=== PATIENT | male | born 1940 | race Caucasian/White ===

== ENCOUNTER 2018-03-26 07:50 | Inpatient (IN) | payer MEDICARE ==
--- NOTE | 2018-03-26 05:56 | History and Physical Report ---
DATE: 03/26/2018. CHIEF COMPLAINT AND HISTORY OF CHIEF COMPLAINT: This patient presents with a history of an intractable postlaminectomy radiculopathy. Due to the failure of all therapies, he presents today for an implanted spinal catheter infusion trial with hydromorphone. PAST MEDICAL HISTORY: Hypertension, sleep apnea. PAST SURGICAL HISTORY: Lumbar spinal surgery times three. MEDICATIONS ON ADMISSION: To be provided. ALLERGIES: Multiple blood pressure medications. SOCIAL HISTORY: Social alcohol, caffeine. FAMILY HISTORY: Diabetes, coronary artery disease, hypertension, cancer. REVIEW OF SYSTEMS: The patient seems appropriate and in no acute distress. The remainder of the systems review shows glasses, blood pressure problems, degenerative arthritis, depression, difficulty sleeping. PHYSICAL EXAMINATION: General: Height and weight unavailable. Vital Signs: Not available. HEENT: Within normal limits. Lungs: Clear. Heart: Regular rate and rhythm. Abdomen: Nontender. Musculoskeletal: Examination of the musculoskeletal system shows diffuse tenderness in the lumbar spine. Range of motion does produce pain moving into the right leg greater than left. There currently are mild motor deficits with some weakness into the right leg. Sensory field abnormality across the anterolateral surface of the right leg. Ambulation: Assistive device utilized. Neurologic: Cranial nerves are intact. IMPRESSION: 1. POSTLUMBAR LAMINECTOMY SYNDROME, ICD-10 CODE M96.1. 2. LUMBAR RADICULOPATHY, ICD-10 CODE M54.16 AND M54.17. PLAN: The patient is here for an implanted spinal catheter infusion trial with hydromorphone to determine if the implantation of a permanent system can be of any value in pain control. The potential risks, side effects, and complications have all been carefully reviewed and discussed. These include spinal cord injury, spinal headache, nerve root injury, and paralysis. Information to and reviewed with the patient from the canine service teacher by way of written as well as CD Rom. Direct contact with a clinical specialist from [employer] to explain everything has already been provided. All questions were answered. We will consider the procedure outpatient; although an overnight stay will be evaluated because of the epidural blood patch. JOB NUMBER: [id number] cc: Larry Amador Jr., D.O. Aislinn Ocampo
[~2018-03-26 07:50] MED LIST: ACETAMINOPHEN 1,000 MG/100 ML BTL IV ONE; CEFAZOLIN 2 Gram 2 GM/50 ML BAG IVPB ONE; FAMOTIDINE 20MG TABLET PO ONE; HYDROMORPHONE PF 2MG/ML AMP 0.008 MG in 0.9 % SODIUM CHLORIDE 10ML VIA 0.996 ML IV ONE; HYDROMORPHONE PF 2MG/ML AMP 8 MG in 0.9 % SODIUM CHLORIDE 500ML 496 ML IV ONE; MECLIZINE 25 MG TABLET PO ONE; METOCLOPRAMIDE 10 MG TABLET PO ONE
[2018-03-26] MEDS ORDERED: PROPOFOL 10 MG/ML VIAL IV ONE (07:51)
[2018-03-26] MEDS ORDERED: MIDAZOLAM HCL 2MG/2ML VIAL IV ONE (07:51)
[2018-03-26] MEDS ORDERED: FENTANYL PF 100MCG/2ML VIAL IV ONE (07:51)
[2018-03-26] MEDS ORDERED: 0.9 % SODIUM CHLORIDE 10 ML VIAL IVP ONE (07:51)
[2018-03-26] MEDS ORDERED: 0.9 % SODIUM CHLORIDE 100ML BAG IV ONE (07:51)
[2018-03-26] MEDS ORDERED: LIDOCAINE 2% MDV (20MG/ML) 20ML VIAL IV ONE (07:51)
[2018-03-26] MEDS ORDERED: *PACU ONLY* KETAMINE HCL 10 MG/ML (20ML) VIAL IV ONE (07:51)
[2018-03-26] MEDS ORDERED: CEFAZOLIN 1G VIAL IM ONE (07:51)
[2018-03-26 08:16] LABS: BLEEDING TIME 3.5 MINUTES (1.5-7.0)
[2018-03-26 08:29] LABS: PARTIAL THROMBOPLASTIN TIME 27.1 SECONDS (24.5-39.1); PROTHROMBIN TIME (PATIENT) 10.6 SECONDS (9.5-12.1)
[2018-03-26] MEDS ORDERED: TEMAZEPAM 15 MG CAPSULE PO PRN ×2 (10:42)
[2018-03-26] MEDS ORDERED: DIPHENHYDRAMINE HCL 50 MG/ML VIAL IVP PRN ×2 (10:42)
[2018-03-26] MEDS ORDERED: METOCLOPRAMIDE HCL 10 MG/2 ML VIAL IVP PRN (10:42)
[2018-03-26] MEDS ORDERED: METOCLOPRAMIDE 10 MG TABLET PO PRN (10:42)
[2018-03-26] MEDS ORDERED: ACETAMINOPHEN 325 MG TAB PO PRN ×2 (10:42)
[2018-03-26] MEDS ORDERED: HYDROMORPHONE HCL 2 MG/ML VIAL IM PRN ×2 (10:42)
[2018-03-26] MEDS ORDERED: AL HYDROX/MAG HYDROX 30ML UD PO PRN (10:42)
[2018-03-26] MEDS ORDERED: NALOXONE 0.4 MG/1 ML VIAL IVP PRN (10:42)
[2018-03-26] MEDS ORDERED: DIPHENHYDRAMINE HCL 25 MG CAPSULE PO PRN ×2 (10:42)
[2018-03-26] MEDS ORDERED: HYDROCODONE/APAP 7.5/325MG TABLET PO PRN (10:42)
[2018-03-26] MEDS: RINGERS SOLUTION,LACTATED 1,000 ML IV SCH ×2 (17:00→19:57)
[2018-03-26] MEDS: OXYCODONE/APAP 10MG-325MG TABLET PO PRN ×2 (17:36→21:27)
[2018-03-26] MEDS: PREGABALIN (LYRICA) 100MG CAPSULE PO SCH ×2 (17:37→21:28)
[2018-03-26] MEDS: AMLODIPINE BESYLATE 5MG TAB PO SCH ×2 (17:38→21:28)
[2018-03-26] MEDS: CEFAZOLIN 1 Gram 1 GM/50 ML BAG IVPB SCH ×2 (17:40→18:44)
[2018-03-26] MEDS: SENNOSIDES/DOCUSATE SODIUM UD CAPSULE PO PRN (17:42)
--- NOTE | 2018-03-26 21:25 | Operative Note - Fer[place] ---
DATE OF SURGERY: 03/26/18 PREOPERATIVE DIAGNOSIS: POST LAMINECTOMY SYNDROME, ICD-10 CODE = M96.1 WITH LUMBAR RADICULOPATHY, ICD- 10 CODE = M54.16 AND M54.17. SURGERY: 1. FLUOROSCOPIC-GUIDED ACCESS SPINAL SPACE AT L2-3, PLACEMENT OF THIN-WALLED SPINAL CATHETER T11. 2. DIAGNOSTIC MYELOGRAPHY WITH RADIOLOGIC SUPERVISION AND INTERPRETATION. 3. BOLUS OF HYDROMORPHONE 0.002 MG SPINAL SPACE. 4. INCISION, SUBCUTANEOUS DISSECTION, AND ANCHORING OF SPINAL CATHETER TO SUPRASPINOUS FASCIA USING ANCHORING DEVICE AND NONABSORBABLE SUTURE. 5. INCISION, SUBCUTANEOUS DISSECTION, AND CREATION OF SUBCUTANEOUS POUCH AT RIGHT POSTERIOR GLUTEAL MARGIN FOR PLACEMENT OF INTERFACE TO CATHETER. 6. TUNNELING SPINAL CATHETER INTO POSTERIOR POUCH, INTERFACE SPINAL CATHETER WITH SECOND CATHETER COMPONENT BY WAY OF CONNECTOR, TUNNELING SECOND CATHETER COMPONENT 6 CM SUPERIOR, EXITING SKIN. INTERFACE EXTERNAL CATHETER TO EXTERNAL INFUSION PUMP SET TO DELIVER HYDROMORPHONE AT 0.08 MG A DAY. 7. CLOSURE OF POSTERIOR POUCH WITH RUNNING NYLON. CLOSURE OF MIDLINE INCISION WITH STRATAFIX 2-0 FOR FASCIA AND 3-0 FOR SUBCUTICULAR. DERMABOND CLOSURE. 8. NO EPIDURAL BLOOD PATCH BECAUSE OF MULTIPLE LEVELS OF SPINAL FUSION. SURGEON: DARION ROWE D.O. ANESTHESIA: LOCAL SEDATION. ANESTHESIA PROVIDER: ANNY RANGEL CRNA INDICATIONS: This patient presents with a history of an intractable post laminectomy. Diagnostics show four levels of hardware, screws and rods with extensive arthritic change. Due to the failure of therapy, he is here for a spinal infusion trial with implanted catheter to determine if the implantation of a permanent system can be of any value in pain control. SURGERY: Intravenous line, vital sign monitoring, IV sedation, prepped and draped sterile technique. Patient positioned prone. Sterile prep, sterile technique. The spinal interspace at L2-3 was marked, infiltrated. Using fluoroscopic AP and lateral imaging, a #20 gauge spinal was inserted into the spinal space with CSF flow. A thin-walled a thin-walled spinal catheter was advanced and positioned at T11. Diagnostic myelography was performed. The flow characteristics were appropriate for spinal placement with smooth and linear flow characteristics. Catheter identified midline. There was no pain response on the part of the patient. With the confirmation, catheter positioned and bolus of Hydromorphone 0.002 mg was given. The skin above and below the needle infiltrated, incision made and subcutaneous dissection was conducted to the supraspinous fascia. The needle was removed and then the catheter was anchored to the supraspinous fascia with an anchoring device and nonabsorbable suture. CSF was still noted through the catheter. The catheter was clamped to stop CSF leak. At the right posterior gluteal margin, a site ultimately for the pump, skin infiltrated, incision made and subcutaneous dissection was conducted to form a small subcutaneous pouch. A tunneling tool was then used to carry the spinal catheter into this pouch and then at this posterior pouch, the catheter was interfaced with second catheter component by way of a connector. The secondary catheter component was tunneled 6 cm superior from this site exiting the skin. The external catheter was then interfaced to an external pump, which was set to deliver Hydromorphone at 0.08 mg a day. No blood patch could be performed because of the extent of hardware fusion in his lumbar spine. The posterior pouch was closed with a running nylon suture. The midline incision was closed with a STRATAFIX suture, 2-0 for fascia and 3-0 for skin. Dermabond closure over the midline incision. Dressings were placed securing the catheter and all connections under sterile dressing including 4x4s and Medipore tape. The patient was transported to the Recovery Room stable, flat, pillow under head and knees. The patient tolerated everything without any difficulty. All upper and lower extremity functionality intact. There was no significant unusual pain pattern. He will be monitored overnight in the house and then discharged in the morning. He will stay flat for four hours and then slowly elevated for one. DISCHARGE INSTRUCTIONS: 1. The sites are to remain clean and dry. No showering or bathing in any way that would disrupt dressings. If it happens, contact the clinic. 2. Standard medications resumed, including Levaquin, the antibiotic, 500 mg once a day for 14 days. 3. The trial will run 12 to 14 days. During this period of time, we will evaluate pain control, functionality, quality of life, and medication reduction. At the end of the trial period, we will either implant the device or remove the catheter. During the trial period, three possible increases will be set up and used until we achieve the appropriate degree of pain control. All other instructions provided, numbers to contact if problems given. He will be discharged in the morning. cc: Dr. Larry MONTGOMERY NUMBER: [id number] MTDD
[2018-03-26] MEDS: LOSARTAN POTASSIUM 25 MG TABLET PO SCH (21:27)
[2018-03-27] MEDS: RINGERS SOLUTION,LACTATED 1,000 ML IV SCH ×3 (00:08→14:51)
[2018-03-27] MEDS: CEFAZOLIN 1 Gram 1 GM/50 ML BAG IVPB SCH ×4 (00:38→09:35)
[2018-03-27] MEDS: OXYCODONE/APAP 10MG-325MG TABLET PO PRN ×3 (01:29→14:58)
[2018-03-27] MEDS: SENNOSIDES/DOCUSATE SODIUM UD CAPSULE PO PRN ×2 (08:40→20:33)
[2018-03-27] MEDS ORDERED: RINGERS SOLUTION,LACTATED 1,000 ML IV PRN (10:00)
[2018-03-27 10:57] LABS: URINE APPEARANCE SL CLOUDY; URINE BILIRUBIN NEGATIVE (NEGATIVE); URINE BLOOD LARGE (NEGATIVE); URINE COLOR GREEN; URINE GLUCOSE (UA) NEGATIVE (NEGATIVE); URINE KETONE NEGATIVE (NEGATIVE); URINE LEUKOCYTE ESTERASE NEGATIVE (NEGATIVE); URINE NITRITE NEGATIVE (NEGATIVE); URINE UROBILINOGEN 0.2 E.U./dL (0.20 - 1.00)
[2018-03-27 11:19] LABS: URINE EPITHELIAL CELLS 0 - 2 (FEW); URINE WBC 0 - 2 (0-2/hpf)
[2018-03-27] MEDS: PREGABALIN (LYRICA) 100MG CAPSULE PO SCH ×2 (12:06→21:54)
[2018-03-27 12:34] LABS: HEMATOCRIT 45.7 % (42.0-52.0); HEMOGLOBIN 15.2 gm/dl (14.0-18.0); MEAN CELL VOLUME 92.5 fl (81-97); MEAN CORPUSCULAR HEMOGLOBIN 30.8 pg (27-33); MEAN CORPUSCULAR HGB CONC 33.3 g/dl (32-36); MEAN PLATELET VOLUME 11.3 fl (7.4-10.4); PLATELET COUNT 182 K/uL (130-400); RED BLOOD COUNT 4.94 M/uL (4.40-5.70); RED CELL DISTRIBUTION WIDTH 14.3 % (11.5-14.5); WHITE BLOOD COUNT W/O DIFF 11.3 K/uL (4.2-12.2)
[2018-03-27 12:56] LABS: ALB/GLOB RATIO 1.6 (1.1-1.8); ALBUMIN 4.2 g/dL (4.0-5.0); BILIRUBIN,TOTAL 0.4 mg/dL (0.2-1.0); CREATININE 2.2 mg/dL (0.7-1.2); TOTAL PROTEIN 6.9 g/dL (6.6-8.7)
--- NOTE | 2018-03-27 14:17 | RADIOLOGY REPORT ---
EXAM: AP PORTABLE THORACOLUMBAR SPINE HISTORY: POST PAIN PUMP TRIAL. TECHNIQUE: A single AP view of the thoracolumbar spine was obtained from approximately the level of the T7 vertebra down to the lower sacrum. Comparison: None. FINDINGS: There is an apparent posterior fusion at the L3 through L5 levels with intrapedicular screws and bridging vertical rods. There is some density overlying the midline of the L5 vertebra probably representing a small amount of contrast media in the spinal canal and correlation with the procedure history is suggested. There is a very dot like opacity overlying the T11-T12 interspace which is presumably the superior extent of the pain pump catheter although again, correlation with the procedure itself suggested. Some surgical clips overlie the level of the lumbar fusion. Linear metallic density 17 mm in length overlying the right iliac wing may be external to the patient. IMPRESSION: THE TIP OF THE PAIN PUMP CATHETER IS PROBABLY AT THE T12 LEVEL DESCRIBED ABOVE. POSTOP CHANGES AT L3 TO L5. JOB NUMBER: [id number] MTDD
[2018-03-27 14:29] LABS: THYROID STIMULATING HORMONE 0.81 uIU/mL (0.270-4.20)
--- NOTE | 2018-03-27 14:36 | RADIOLOGY REPORT ---
EXAM: CHEST, TWO VIEWS HISTORY: HYPOXIA. TECHNIQUE: PA and lateral views of the chest were obtained. Comparison: None. FINDINGS: There is calcification of the aorta. The heart size is at about the upper limits of normal. There is either some coronary artery calcification or a short coronary artery graft/stent extending transversely over the upper left side of the heart on the frontal view. Mild elevation of the left hemidiaphragm laterally. No definite acute infiltrate is seen and no pleural effusion or pneumothorax evident. Somewhat exaggerated kyphosis. Postop changes in the visualized mid lumbar spine. On the frontal view there is a suggestion of an approximately 1.4 cm nodule overlying the left heart border. This also overlies the posterior aspect of the left tenth rib and may just be a combination of overlapping densities. No definite nodule is seen at this level of the chest on the lateral view, however, follow-up chest CT might be useful to exclude a left lower lobe nodule. The lungs do appear somewhat hyperinflated particularly on the lateral view suggesting underlying COPD. IMPRESSION: 1. THERE IS MILD ELEVATION OF THE LEFT HEMIDIAPHRAGM, BUT OVERALL THE LUNGS APPEAR SOMEWHAT HYPERINFLATED SUGGESTING COPD. 2. QUESTIONABLE 1.4 CM NODULE OVERLYING THE POSTERIOR ASPECT OF THE LEFT TENTH RIB. FOLLOW-UP CHEST CT IS SUGGESTED. 3. THE HEART SIZE IS AT ABOUT THE UPPER LIMITS OF NORMAL. 4. POSTOP CHANGES PARTIALLY SEEN IN THE MID LUMBAR SPINE. JOB NUMBER: [id number] [facility]
--- NOTE | 2018-03-27 14:49 | History & Physical ---
History of Present Illness - Date of Service Date of Service for History & Physical: 03/27/18 - History of Present Illness Admitting Diagnosis: Acute heart failure. KIN History of Present Illness: Pt was admitted via Dr. Goddard 03/26/18 for placement of dilaudid pump. This AM nursing noted that the pt was complaining of severe abdominal pain, distention, and rigidity. Bladder scan was done and roughly 1200ml of urine was eradicated from the bladder. His abdominal pain resolved but the urine was very dark. UA was done but only showed blood - likely 2/2 to trauma of catheterization. Retention likely 2/2 to narcotic medication. Per Dr. Goddard the pump was to be shut off until further notice. Urine cx is still pending. Pt also complained of "harder breathing" and swelling in the legs b/l. BNP was done and was found to be 700. He doesn't have h/o heart failure and this requires workup. He was then transitioned to inpt for cardiac workup and KIN likely 2/2 to obstruction with Cr of 2.2. Echo, trops, TSH, and mag were also ordered for further evaluation. CBC and CMP were otherwise normal. Travel Screening - Travel/Exposure Within Last 30 Days Have you traveled within the last 30 days?: No - Travel/Exposure Within Last Year Have you traveled outside the [place] in the last year?: No - Additonal Travel Details Have you been exposed to anyone with a communicable illness?: No - Travel Symptoms Symptom Screening: None Review of Systems Constitutional: Reports: Chills. Denies: Fever, Malaise, Night sweats, Weakness Eyes: Denies: Eye discharge, Eye pain, Photophobia, Vision change ENT: Denies: Congestion, Ear pain Respiratory: Reports: Cough, Dyspnea, Wheezes. Denies: Hemoptysis, Stridor Cardiovascular: Reports: Dyspnea on exertion, Edema. Denies: As per HPI, Arrhythmia, Chest pain, Murmurs, Orthopnea, Palpitations, Paroxysmal nocturnal dyspnea, Syncope Endocrine: Denies: Fatigue Gastrointestinal: Reports: Abdominal pain. Denies: Constipation, Diarrhea, Nausea, Vomiting Genitourinary: Reports: Retention. Denies: Dysuria, Frequency, Incontinence Musculoskeletal: Reports: Back pain Skin: Denies: Change in color Neurological: Denies: Abnormal gait, Confusion, Headache, Numbness, Vertigo, Weakness Psychiatric: Denies: Anxiety, Depression Past Medical History - SOCIAL HISTORY Smoking Status: Former smoker Alcohol Use Comment: answered "yes" would not give anymore info - RESPIRATORY Hx Respiratory Disorders: Yes Hx Sleep Apnea: Yes Hx of CPAP: Yes - CARDIOVASCULAR Hx Cardio Disorders: Yes Hx Abnormal EKG: Yes Hx Cardiac Cath: Yes Hx Chest Pain: (denies) Hx CHF: No Hx Edema: No Hx Heart Attack: Yes Hx Hypertension: Yes (on meds with fair control) Hx Vascular Disease: Yes Hx Coronary Artery Disease: Yes Hx Coronary Stent: Yes (12-14 yrs ago) 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" - NEURO Hx Neuro Disorders: No - GI Hx GI Disorders: No - Hx Genitourinary Disorders: No - ENDOCRINE Hx Endocrine Disorders: No - MUSCULOSKELETAL Hx Musculoskeletal Disorders: Yes Hx Arthritis: Yes Hx Back Injury: Yes - PSYCH Hx Psych Problems: Yes Hx Anxiety: Yes Hx Depression: Yes Comment:: states "wouldnt anybody in as much pain as I am" - HEMATOLOGY/ONCOLOGY Hx Hematology/Oncology Disorders: No Family Medical History Hx Cancer: Mother Hx Diabetes: Father Hx Heart Disease: Father H&P Meds/Allergies - Allergies Allergies: Allergies Allergy/AdvReac Type Severity Reaction Status Date / Time clindamycin AdvReac FLU LIKE Verified 03/26/18 09:01 SYMPTOMS - Active Medications Active Medications: Current Medications Acetaminophen (Tylenol 325mg) 325 mg PO Q4H PRN PRN Reason: PAIN/HEADACHE/TEMP>100.5 Acetaminophen (Tylenol 325mg) 650 mg PO Q4H PRN PRN Reason: PAIN/HEADACHE/TEMP>100.5 Hydrocodone Bitart/Acetaminophen ([place] 7.5mg/325mg) 1 each PO Q3H PRN PRN Reason: PAIN - MILD (1-4) Hydrocodone Bitart/Acetaminophen ([place] 7.5mg/325mg) 2 each PO Q3H PRN PRN Reason: PAIN - MILD (1-4) Al Hydroxide/Mg Hydroxide (Maalox) 30 ml PO Q4H PRN PRN Reason: INDIGESTION/HEARTBURN Amlodipine Besylate (Norvasc) 10 mg PO QHS JORDAN Last Admin: 03/26/18 21:28 Dose: Not Given Diphenhydramine HCl (Benadryl) 25 mg IVP Q4H PRN PRN Reason: ITCHING Diphenhydramine HCl (Benadryl) 50 mg IVP Q4H PRN PRN Reason: ITCHING Diphenhydramine HCl (Benadryl Capsule) 25 mg PO Q4H PRN PRN Reason: ITCHING Diphenhydramine HCl (Benadryl Capsule) 50 mg PO Q4H PRN PRN Reason: ITCHING Hydromorphone HCl (Dilaudid) 1 mg IM Q4H PRN PRN Reason: PAIN - SEVERE (8-10) Hydromorphone HCl (Dilaudid) 2 mg IM Q4H PRN PRN Reason: PAIN - SEVERE (8-10) Hydromorphone HCl 8 mg/ Sodium (Chloride) 500 mls @ 1 mls/hr IV .FOR TRIAL DOSE ONE Stop: 04/16/18 01:59 Last Admin: 03/26/18 15:59 Dose: Not Given Lactated Ringer's () 1,000 mls @ 15 mls/hr IV .Q24H PRN PRN Reason: KVO Last Admin: 03/27/18 11:19 Dose: 15 mls/hr Losartan Potassium (Cozaar) 50 mg PO QHS JORDAN Last Admin: 03/26/18 21:27 Dose: 50 mg Metoclopramide HCl (Reglan) 10 mg PO Q6H PRN PRN Reason: NAUSEA Metoclopramide HCl (Reglan) 10 mg IVP Q6H PRN PRN Reason: NAUSEA Naloxone HCl (Narcan) 0.4 mg IVP .ONCE PRN PRN Reason: DIFFICULTY IN BREATHING Oxycodone/Acetaminophen (Percocet 10-325 Mg Tablet) 1 each PO Q4H PRN PRN Reason: PAIN - MODERATE (5-7) Last Admin: 03/27/18 08:41 Dose: 1 each Oxycodone/Acetaminophen (Percocet 10-325 Mg Tablet) 2 each PO Q4H PRN PRN Reason: PAIN - MODERATE (5-7) Last Admin: 03/27/18 01:29 Dose: 2 each Pregabalin (Lyrica) 200 mg PO BID [facility] Last Admin: 03/27/18 12:06 Dose: 200 mg Senna/Docusate Sodium (Senna Plus) 2 each PO BID PRN PRN Reason: CONSTIPATION Senna/Docusate Sodium (Senna Plus) 4 each PO BID PRN PRN Reason: CONSTIPATION Last Admin: 03/27/18 08:40 Dose: 4 each Temazepam (Restoril) 15 mg PO QHS PRN PRN Reason: SLEEP Temazepam (Restoril) 30 mg PO QHS PRN PRN Reason: SLEEP Physical Exam - Vital Signs Vital Signs: Vital Signs - Last 24 Hrs Temp Pulse Pulse Pulse Resp BP Pulse Ox 03/27/18 14:27 89 18 96 03/27/18 09:00 99.8 F H 81 12 170/83 85 L 03/27/18 08:30 74 78 16 03/27/18 06:15 88 16 93 L 03/27/18 01:00 98.6 F 72 16 160/87 95 03/26/18 21:18 98.0 F 74 18 154/74 94 L 03/26/18 20:03 78 18 03/26/18 17:00 96 - General General Appearance: Alert, Oriented x3, No acute distress Limitations: No limitations - Head Head exam: Atraumatic, Other (somewhat diaphoretic) - Eye Eye exam: Normal appearance - ENT Ear exam: Normal external inspection Nasal Exam: Normal inspection - Neck Neck exam: Normal inspection - Respiratory Respiratory exam: Decreased breath sounds (b/l). negative: Normal lung sounds bilaterally - Cardiovascular Cardiovascular Exam: Regular rate, Normal rhythm - GI/Abdominal GI/Abdominal exam: Soft, Normal bowel sounds. negative: Guarding, Hernia, Mass , Pulsatile mass - exam: Normal inspection - Extremities Extremities exam: Pedal edema (1+ b/l up to knee), Tenderness (when checking for edema b/l) - Psychiatric Psychiatric exam: Normal mood Results - Labs Result Diagrams: 03/27/18 12:22 03/27/18 12:22 Labs Last 24 Hours: Laboratory Results - last 24 hr 03/27/18 03/27/18 03/27/18 10:50 12:22 12:22 WBC 11.3 RBC 4.94 Hgb 15.2 Hct 45.7 MCV 92.5 MCH 30.8 MCHC 33.3 RDW 14.3 Plt Count 182 MPV 11.3 H Neutrophils % 90.0 H Eosinophils % Not Reportable Basophils % Not Reportable Lymphocytes 3.0 L Monocytes 7.0 Sodium 143 Potassium 4.3 Chloride 103 Carbon Dioxide 24.0 Anion Gap 16.0 BUN 29 H Creatinine 2.2 H Estimated GFR 31 Random Glucose 168 H Calcium 9.1 Magnesium Total Bilirubin 0.40 AST 19 ALT 9 Alkaline Phosphatase 65 Troponin T NT-Pro-B Natriuret Pep Total Protein 6.9 Albumin 4.2 Globulin 2.7 Albumin/Globulin Ratio 1.6 TSH Urine Color Green H Urine Appearance Sl cloudy Urine pH 6.0 Ur Specific Staples 1.010 Urine Protein 30 mg/dl H Urine Glucose (UA) Negative Urine Ketones Negative Urine Blood Large H Urine Nitrite Negative Urine Bilirubin Negative Urine Urobilinogen 0.2 Ur Leukocyte Esterase Negative Urine RBC Too numerous to cnt Urine WBC 0 - 2 Ur Epithelial Cells 0 - 2 03/27/18 03/27/18 03/27/18 12:22 12:22 12:22 WBC RBC Hgb Hct MCV MCH MCHC RDW Plt Count MPV Neutrophils % Eosinophils % Basophils % Lymphocytes Monocytes Sodium Potassium Chloride Carbon Dioxide Anion Gap BUN Creatinine Estimated GFR Random Glucose Calcium Magnesium 1.8 Total Bilirubin AST ALT Alkaline Phosphatase Troponin T < 0.010 NT-Pro-B Natriuret Pep 701.00 H Total Protein Albumin Globulin Albumin/Globulin Ratio TSH 0.81 Urine Color Urine Appearance Urine pH Ur Specific Staples Urine Protein Urine Glucose (UA) Urine Ketones Urine Blood Urine Nitrite Urine Bilirubin Urine Urobilinogen Ur Leukocyte Esterase Urine RBC Urine WBC Ur Epithelial Cells VTE H&P Assessment - Risk for VTE Risk for VTE: Yes Risk Level: Moderate Risk Assessment Date: 03/27/18 Risk Assessment Time: 15:00 VTE Orders Placed or Will Be Placed: Yes Plan - Inpatient Certification Inpatient Certification: Admit to inpatient care: Based on my medical assessment, after consideration of patient's risk factors (age, co-morbidities and patient presenting symptoms and acuity), I expect that this patient will remain in the hospital greater than or equal to two midnights and that the services needed warrant inpatient care because: Patient Risk Factors: [] Estimated length of stay: [] The patient may reasonably be expected to be discharged or transferred to a hospital within 96 hours after admission to [facility]. Services needed: [] Post hospital care (if known): [] I certify that my determination is in accordance with my understanding of Medicare requirements for reasonable and necessary inpatient services. - Detailed Diagnosis and Plan (1) Acute heart failure Plan: - BNP 701 today - Chronic HTN. Not very well controlled. Recent increase in fluid 2/2 to surgery and LR protocol. - Called PCP regarding pt's history. Last echo was done in 2013 with EF of 60-65 % with mild diastolic dysfunction. No valvular issues. - Rpt echo pending. - Trops, tsh, EKG normal. - D/C'd LR, saline lock ordered. - Lasix 20mg once ordered. - Will optimize mag to > 2 with oral supplementation. Will recheck in AM after 2 doses. Current Visit: Yes Status: Acute Qualifiers: Heart failure type: unspecified Qualified Code(s): I50.9 - Heart failure, unspecified Base Code: I50.9 - HEART FAILURE, UNSPECIFIED (2) KIN (acute kidney injury) Plan: - Cr/ BUN ratio > than 15. Had severe retention and straight cathed 1200ml this AM. Increase in Cr and BUN likely 2/2 to this. - Stopped narcotic pump. - Bladder scan Q4hrs and PRN, Straight cath PRN >350 ml on bladder scan. - Will monitor closely and rpt labs in AM. Current Visit: Yes Status: Acute Base Code: N17.9 - ACUTE KIDNEY FAILURE, UNSPECIFIED (3) HTN (hypertension) Plan: - Continue on home medications as prescribed. Current Visit: Yes Status: Chronic Qualifiers: Hypertension type: essential hypertension Qualified Code(s): I10 - Essential (primary) hypertension Base Code: I10 - ESSENTIAL (PRIMARY) HYPERTENSION (4) Former heavy cigarette smoker (20-39 per day) Plan: - Smoked 2-3 PPD for 60 years. - COPD on XR. No official diagnosis with PFT done in the past. - O2 sats drop down to 88%. - Keep O2 sats in range of 88-92% to prevent reducing breathing drive. - Breathing treatments as needed. Current Visit: Yes Status: Acute Base Code: Z87.891 - PERSONAL HISTORY OF NICOTINE DEPENDENCE (5) Sleep apnea Plan: - Counseled pt to get family member to bring in CPAP for use. Current Visit: Yes Status: Acute Base Code: G47.30 - SLEEP APNEA, UNSPECIFIED (6) CAD (coronary artery disease) Plan: - H/o stent - Will monitor for signs or symptoms of IL while on floor. - Hold aspirin 2/2 to KIN since not essential medication. Current Visit: Yes Status: Acute Base Code: I25.10 - ATHSCL HEART DISEASE OF [place] CORONARY ARTERY W/O ANG PCTRS - Disposition - D/c home on BB/ VALERIA inhibitor given heart failure depending on echo results. Pt may have to straight cath at home if ready to be discharged tomorrow. To be discussed with pt and his son.
[2018-03-27] MEDS ORDERED: FUROSEMIDE 20 MG TABLET PO ONE (16:37)
[2018-03-27] MEDS ORDERED: IPRATROPIUM/ALBUTEROL (0.5MG/3MG) NEB INH PRN (17:02)
[2018-03-27] MEDS ORDERED: TAMSULOSIN HCL 0.4 MG CAP.ER.24H PO ONE (20:28)
[2018-03-27] MEDS: HYDROCODONE/APAP 7.5/325MG TABLET PO PRN (20:32)
[2018-03-27] MEDS: MAGNESIUM OXIDE 400 MG TABLET PO SCH (21:54)
[2018-03-27] MEDS: LOSARTAN POTASSIUM 25 MG TABLET PO SCH (21:54)
[2018-03-27] MEDS: AMLODIPINE BESYLATE 5MG TAB PO SCH (21:54)
[2018-03-28] MEDS: OXYCODONE/APAP 10MG-325MG TABLET PO PRN ×3 (02:04→18:54)
[2018-03-28 06:17] LABS: BASO % 0.3 % (0-6); EOS % 1.7 % (0-6); HEMATOCRIT 40.1 % (42.0-52.0); LYMPH % 15.8 % (16-45); MEAN CELL VOLUME 94.1 fl (81-97); MEAN CORPUSCULAR HEMOGLOBIN 30.5 pg (27-33); MEAN CORPUSCULAR HGB CONC 32.4 g/dl (32-36); MEAN PLATELET VOLUME 10.7 fl (7.4-10.4); MONO % 9.2 % (0-9); PLATELET COUNT 144 K/uL (130-400); RED BLOOD COUNT 4.26 M/uL (4.40-5.70); RED CELL DISTRIBUTION WIDTH 14.2 % (11.5-14.5); WHITE BLOOD COUNT W/O DIFF 7.8 K/uL (4.2-12.2)
[2018-03-28 06:33] LABS: ALB/GLOB RATIO 1.7 (1.1-1.8); ALBUMIN 3.8 g/dL (4.0-5.0); ALKALINE PHOSPHATASE 50 U/L (40-129); ALT/SGPT < 5 U/L (<41); AST/SGOT 12 U/L (10.0-50.0); BLOOD UREA NITROGEN 33 mg/dL (8-23); CREATININE 1.7 mg/dL (0.7-1.2); EST GLOMERULAR FILTRATION RATE 42 mL/min; GLUCOSE,RANDOM 125 mg/dL (74-109)
[2018-03-28] MEDS: PREGABALIN (LYRICA) 100MG CAPSULE PO SCH (09:00)
[2018-03-28] MEDS: MAGNESIUM OXIDE 400 MG TABLET PO SCH (09:00)
[2018-03-28] MEDS: SENNOSIDES/DOCUSATE SODIUM UD CAPSULE PO PRN (09:01)
[2018-03-28] MEDS: HYDROCODONE/APAP 7.5/325MG TABLET PO PRN ×2 (09:01→14:59)
[2018-03-28] MEDS ORDERED: TAMSULOSIN HCL 0.4 MG CAP.ER.24H PO SCH (10:00)
--- NOTE | 2018-03-28 19:28 | Discharge Summary ---
Providers Discharge Summary Date: 03/28/18 Date of admission: 03/27/18 13:47 Expected Date of Discharge: 03/28/18 Attending physician: ANGÉLICA KELLY Primary care physician: Dave [place]) Consults: Consult Orders 03/27/18 10:21 Consult - Medical Management NOW Consulting Provider: Physician Instructions: Reason For Exam: Physical Exam - Vital Signs Vital Signs: Vital Signs - Last 24 Hrs Temp Pulse Pulse Resp BP Pulse Ox 03/28/18 09:37 78 18 93 L 03/28/18 09:00 63 18 03/28/18 08:00 98.1 F 63 18 152/76 100 03/27/18 21:02 98.5 F 68 17 195/92 68 L - General General Appearance: Alert, Oriented x3, No acute distress Limitations: No limitations - Head Head exam: Atraumatic - Eye Eye exam: Normal appearance - ENT Ear exam: Normal external inspection Nasal Exam: Normal inspection - Neck Neck exam: Normal inspection - Respiratory Respiratory exam: Decreased breath sounds (b/l). negative: Normal lung sounds bilaterally - Cardiovascular Cardiovascular Exam: Regular rate, Normal rhythm Peripheral Pulses: 2+: Radial (R), Radial (L), Dorsalis Pedis (R), Dorsalis Pedis (L) - GI/Abdominal GI/Abdominal exam: Soft, Normal bowel sounds. negative: Guarding, Hernia, Mass , Pulsatile mass - exam: Normal inspection - Extremities Extremities exam: Pedal edema (1+ b/l up to knee), Tenderness (when checking for edema b/l) - Neurological Neurological exam: Alert, Normal gait, Oriented X3 - Psychiatric Psychiatric exam: Anxious, Normal mood - Skin Skin exam: Other (flushed) Hospitalization - Hospitalization Admission Diagnosis: Acute heart failure. KIN - Problem List/Discharge Diagnosis (1) Urinary retention Status: Acute Base Code: R33.9 - RETENTION OF URINE, UNSPECIFIED Comment: : Patient had surgery with Dr. Goddard 03/26/18 for pain pump placement. Patient has had issues with urinary retention since surgery, requiring frequent straight cath attempts. Patient received Flomax 0.4mg qd. Continued to have high post-void residuals, requiring britton catheter placement. Patient was beginning to have traumatic catheter attempts, due to enlarged prostate, with hematuria noted. Patient reported history of enlarged prostate, requiring a prostate biopsy by a urologist in [place]. Patient reported taking super beta prostate regularly, but reports having stopped the medication prior to surgery. -Patient will dc home with britton catheter and leg bag and scheduled to follow- up with urology 04/03/18. (2) Acute heart failure Status: Acute Discharge Diagnosis: Heart failure type: unspecified Qualified Code(s): I50.9 - Heart failure, unspecified Base Code: I50.9 - HEART FAILURE, UNSPECIFIED Comment: 03/28/18: Patient was evaluated for acute heart failure due to complaints of increased shortness of breath, edema, and diaphoresis. -ProBNP 700. Patient received Lasix IVP -Cardiac enzymes negative -EKG: normal ekg, rate 67, some T wave inversions noted. -ECHO: EF55-60%, grade I diastolic dysfunction, mild left ventricular hypertrophy, mild mitral regurgitation, mild tricuspid regurg, normal pulmonary pressures. Essentially unchanged from ECHO report in 2014. -Chest x-ray: lungs hyperinflated to suggest COPD, normal cardiac size, questionable nodule on posterior aspect of left 10th rib with CT follow-up recommended -Patient asymptomatic today, will have him follow-up with PCP due to unremarkable workup (3) HTN (hypertension) Status: Chronic Discharge Diagnosis: Hypertension type: essential hypertension Qualified Code(s): I10 - Essential (primary) hypertension Base Code: I10 - ESSENTIAL (PRIMARY) HYPERTENSION Comment: 03/28/18: Multiple hypertensive recordings noted during admission -Receiving home medications of Amlodipine and Losartan -Will consider starting beta sixto due to mild left diastolic dysfunction -Elevated readings likely due to increased pain -Patient to follow-up with PCP for medication adjustments as needed (4) Full code status Status: Acute Base Code: Z78.9 - OTHER SPECIFIED HEALTH STATUS Comment: 03/28: Patient full code this admission - Hospitalization Course Disposition: Home, Self-Care Hospital Course: Pt was admitted via Dr. Goddard 03/26/18 for placement of dilaudid pump. This AM nursing noted that the pt was complaining of severe abdominal pain, distention, and rigidity. Bladder scan was done and roughly 1200ml of urine was eradicated from the bladder. His abdominal pain resolved but the urine was very dark. UA was done but only showed blood - likely 2/2 to trauma of catheterization. Retention likely 2/2 to narc[address] medication. [address] Dr[address] Goddard the pump was to be shut off until further notice. Urine cx is still pending. Pt also complained of "harder breathing" and swelling in the legs b/l. BNP was done and was found to be 700. He doesn't have h/o heart failure and this requires workup. He was then transitioned to inpt for cardiac workup and KIN likely 2/2 to obstruction with Cr of 2.2. Echo, trops, TSH, and mag were also ordered for further evaluation. CBC and CMP were otherwise normal. 03/28/18: Cardiac workup negative. Patient no longer diaphoretic, no complaints of shortness of breath or chest pain EKG: sinus rhythm, rate 67, some t wave inversions noted ECHO: EF 55-60%, grade I diastolic dysfunction, mild left ventricular hypertrophy, mild mitral regurgitation, mild tricuspid regurg, normal pulmonary pressures. Essentially unchanged from ECHO report in 2013 Chest x-ray: hyperinflation suggesting COPD, normal cardiac size, questionable nodule on posterior aspect of left 10th rib with follow-up chest CT recommended. Trops, TSH, and mag all WNL. Patient scheduled for follow-up with PCP 04/09 to further discuss cardiac concerns and possible lung nodule Patient continues to have urinary retention. Patient received Flomax 0.4mg PO qd. Due to inability to void and post-void residuals >400 patient required multiple straight caths. Patient ended up receiving britton catheter due to unsuccessful bladder training. Patient reported history of enlarged prostate, stating he has had a prostate biopsy in the past by a urologist in [place]. Patient reported taking super beta prostate prior to operation but states he had to stop medication per Dr. Goddard's instruction. Patient has been scheduled with urology for 04/03/18. Patient to be discharged with britton and educated on legbag care. Spoke with Dr. Goddard regarding patient's status. Patient was given additional day to attempt to resolve urinary retention, but failed attempts at urinating on his own. Dr. Goddard will follow-up with patient in the office and determine appropriate use of pain pump at that time. Pump remained off at discharge and patient was scheduled for follow-up with Dr. Goddard on Saturday. Procedures: Imaging and X-Rays 03/26/18 09:20 FLUOROSCOPIC GUIDANCE-PAIN [RAD] Routine 03/26/18 10:30 SPINE, 1 VIEW [RAD] Routine 03/27/18 10:47 CHEST 2 VIEWS [RAD] Routine Cardiology Procedures 03/27/18 13:31 Echocardiogram 2D - Complete NOW 03/27/18 13:50 EKG NOW Abnormal Labs: Abnormal Lab Results 03/27/18 03/27/18 03/27/18 Range/Units 10:50 12:22 12:22 RBC (4.40-5.70) M/uL Hgb (14.0-18.0) gm/dl Hct (42.0-52.0) % MPV 11.3 H (7.4-10.4) fl Neutrophils % 90.0 H (47-80) % Lymphocytes % (16-45) % Monocytes % (0-9) % Lymphocytes 3.0 L (16-45) % BUN 29 H (8-23) mg/dL Creatinine 2.2 H (0.7-1.2) mg/dL Random Glucose 168 H (74-109) mg/dL NT-Pro-B Natriuret Pep (<450) pg/mL Total Protein (6.6-8.7) g/dL Albumin (4.0-5.0) g/dL Urine Color Green H Urine Protein 30 mg/dl H (NEGATIVE) Urine Blood Large H (NEGATIVE) 03/27/18 03/28/18 03/28/18 Range/Units 12:22 06:10 06:10 RBC 4.26 L (4.40-5.70) M/uL Hgb 13.0 L (14.0-18.0) gm/dl Hct 40.1 L (42.0-52.0) % MPV 10.7 H (7.4-10.4) fl Neutrophils % (47-80) % Lymphocytes % 15.8 L (16-45) % Monocytes % 9.2 H (0-9) % Lymphocytes (16-45) % BUN 33 H (8-23) mg/dL Creatinine 1.7 H (0.7-1.2) mg/dL Random Glucose 125 H (74-109) mg/dL NT-Pro-B Natriuret Pep 701.00 H (<450) pg/mL Total Protein 6.0 L (6.6-8.7) g/dL Albumin 3.8 L (4.0-5.0) g/dL Urine Color Urine Protein (NEGATIVE) Urine Blood (NEGATIVE) Condition at Discharge: (2) Stable VTE Discharge VTE Reason For No Overlap Therapy: Not Indicated (will resume normal activity) Discharge Medications - Discharge Medications Prescriptions: Tamsulosin HCl [Flomax] 0.4 mg PO DAILY #14 cap.er.24h Home Medications: Ambulatory Orders Tamsulosin HCl [Flomax] 0.4 mg PO DAILY #14 cap.er.24h 03/28/18 [Last Taken Unknown] Discharge Plan - Discharge Instructions Activity at Discharge: Increase Activity as Tolerated Diet at Discharge: Regular Diet Instructions: Levofloxacin (By mouth), Tamsulosin (By mouth), Britton Catheter Placement and Care (DC), Local Infusion Pain Management Pump (DC), Urinary Leg Bag (GEN) Additional Instructions: 2 Activity: Up as tolerated Do not shower until otherwise stated by Dr. Goddard Sponge bathe only 2 Diet: TOLERATED 2 Consults: [Dr. Arias on April 03 at 0830 am. Please arrive 15 minutes early, ] 2 Follow Up: []WITH DR GODDARD SCHEDULED: Saturday 03/[address] Acosta on 04/09 at 11:00 AM [facility] [facility] , Please take Chest XRAY results to appointment for Dr. Acosta to discuss 2 Dressing/Wound Care: Keep dressing clean, dry, and intact at all times Do not remove dressing Do not get dressing wet Reinforce dressing as needed See additional detailed instruction sheet from Dr. Goddard labeled PAIN MANAGEMENT SERVICES provided in your discharge packet (Type) (Change) 2 Additional: [] FOLLOW DR GODDARD'S PRINTED INSTRUCTION SHEET TAKE ANTIBIOTIC PRESCRIBED Dr. Acosta has ordered CPAP supplies, call [employer] to set up a time to pick these up: Continue home medications New medications You can burr picker your prescription pain medication from Dr. Stiles office. You can burr picker you prescription for your antibiotic, it is important to take as directed and to complete this prescription. The prescription has been called into your pharmacy. Flomax has been sent over to your Rx please burr picker Rx and start taking 03/28/[address] Goddard of any fever greater than 100.5, or signs of infection such as redness, and warmth to touch. Quality Measures - Quality Measures Quality Measures: Advance Directives, Coronary Artery Disease: Antiplatelet Therapy, Documentation of Current Medications in Medical Record, Elder Maltreatment Screen and Follow-Up Plan, Heart Failure, Screening for High Blood Pressure and F/U Documented - Current Medications Quality Measure: Measure #130: Documentation of Current Medications Documentation of Current Medications: <Current Medications Documented/Reviewed> [G8427] - Blood Pressure Screening Quality Measure: Screening for High Blood Pressure and Follow-Up Documented Does Patient Have Any of the Following: Active Dx of HTN Blood Pressure Classification: Hypertensive Reading Systolic Measurement: 192 Diastolic Measurement: 94 Screening for High Blood Pressure: Patient Exclusion, Hx of HTN [G9744] - Coronary Artery Disease Quality Measure: Measure #6: Coronary Artery Disease (CAD) Antiplatelet Therapy: Not Prescribed for Medical Reason [4086F with 1P] Medical Reason for NOT Prescribing Antiplatelet: Other Medical Reason ( contraindicated post-op) - Heart Failure (VALERIA/ARB Therapy) Quality Measure: Heart Failure Left Ventricular Systolic Function: Unknown VALERIA Inhibitor or ARB Therapy for LVSD: <VALERIA Inhibitor or ARB therapy prescribed or currently taken> [4010F] - Heart Failure (Beta-sixto Therapy) Quality Measure: Heart Failure Left Ventricular Systolic Function: Unknown Beta-Sixto Therapy for LVEF < 40%: Not Eligible - Advance Directives Quality Measure: Measure #47: Care Plan Advance Directives Established: Yes Advance Directives Information Provided To Patient: Declined Advance Directives on File: No Living Will: Yes Power of Practice Lead: Yes Advance Care Planning: Not Discussed or Documented [1123F 8P] - Elder Abuse Suspicion Index Screening: Elder Abuse Suspicion Index Screening Rely on people for bathing, dressing, shopping, banking, etc: No Prevented from getting food, clothes, medication, etc: No Made to feel shamed or threatened by someone: No Forced to sign papers or use money against will: No Feel afraid, touched in ways not wanted or hurt physically: No Poor eye contact, withdrawn, malnourished, cuts or bruises: No Screening Result: Negative result EASI Reference Information: Amaya PATEL, Shekhar Fernandez, Michelle Rincon, Nikolay Khan.Development and validation of a tool to assist physicians identification of elder abuse: The Elder Abuse Suspicion Index (EASI ). Journal of Elder Abuse and Neglect, 2008; 20 (3): 276-300. - Elder Maltreatment Screen Quality Measures: Elder Maltreatment Screen and Follow-Up Plan Elder Maltreatment Screen: <Negative, No Follow-Up Plan Required> [G0517]
== END 2018-03-28 20:20 | disposition home or self-care (01) | DRG 552 ==
LOC: SUR 07:50 → MEDSURG 11:14 → SUR 03-27 13:46 → MEDSURG 03-27 13:47
PROVIDERS: ADMIT Pain Medicine Interventional Pain Medicine; ATTEND Internal Medicine
DX: M96.1 Postlaminectomy syndrome, not elsewhere classified (principal); M54.16 Radiculopathy, lumbar region; M54.17 Radiculopathy, lumbosacral region; I10 Essential (primary) hypertension; I25.10 Atherosclerotic heart disease of native coronary artery without angina pectoris; Z95.5 Presence of coronary angioplasty implant and graft
CPT/HCPCS: 71046; 72020; 80053; 81001; 83735; 83880; 84443; 84484; 85002; 85025; 85027; 85610; 85730; 93005; 93306; 94760; 94761; J0690; J1170; J7040; J7120

== ENCOUNTER 2018-04-09 09:01 | Day surgery (SDC) | payer MEDICARE ==
--- NOTE | 2018-04-09 06:33 | History and Physical - [place] ---
CHIEF COMPLAINT/HISTORY OF CHIEF COMPLAINT: This patient had an implanted spinal catheter infusion trial with Hydromorphone that is here for medication change due to side effects and complications. 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 PAST SURGICAL HISTORY: Lumbar spinal surgery times three. MEDICATIONS ON ADMISSION: List to be provided. ALLERGIES: Blood pressure medication. FAMILY/PSYCHOSOCIAL HISTORY: Social history - Social alcohol and caffeine. Family history - Diabetes, coronary artery disease, hypertension, and cancer. SYSTEMS REVIEW: The patient is appropriate in no acute distress. The remainder of the systems review is positive for glasses, blood pressure problems , degenerative arthritis, and difficulty sleeping. PHYSICAL EXAMINATION: Height and weight to be provided. No vital signs available. HEENT: Within normal limits. LUNGS: Clear. HEART: Regular rate and rhythm. ABDOMEN: Nontender. MUSCULOSKELETAL: Examination of the musculoskeletal system shows the dressings for the implanted catheter trial to be intact. The external pump is identified and off. Primary pain pattern is low back with a bilateral leg extension. NEUROLOGIC: Cranial nerves are intact. IMPRESSION: 1. 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 2. IMPLANTED SPINAL CATHETER INFUSION TRIAL, HYDROMORPHONE INFUSION DEVICE OFF. 3. CHRONIC BENIGN PROSTATIC HYPERTROPHY WITH URINARY RETENTION REQUIRING STRAIGHT CATHETERIZATION. PLAN: The patient is here for medication change from Hydromorphone to a Fentanyl Bupivacaine combination. The trial will be extended one week. After one week we will either implant the pump or remove the implanted catheter. JOB NUMBER: [id number] MTDD
[~2018-04-09 09:01] MED LIST changes: +CEFAZOLIN 2 G in 0.9% SODIUM CHLORIDE 50ML 50 ML IVPB ONE; +FENTANYL CITRATE/PF 5,000 MCG, BUPIVACAINE 0.5% PF 20 MG in 0.9 % SODIUM CHLORIDE 500ML... IJ ONE; +FENTANYL PF 100MCG/2ML VIAL IVP ONE; -HYDROMORPHONE PF 2MG/ML AMP 0.008 MG in 0.9 % SODIUM CHLORIDE 10ML VIA 0.996 ML IV ONE; -HYDROMORPHONE PF 2MG/ML AMP 8 MG in 0.9 % SODIUM CHLORIDE 500ML 496 ML IV ONE
--- NOTE | 2018-04-12 10:12 | Operative Note ---
DATE OF SURGERY: 04/09/18 PREOPERATIVE DIAGNOSES: 1. POST LUMBAR LAMINECTOMY SYNDROME, ICD-10 CODE = M96.1 WITH RADICULOPATHY, ICD -10 CODE = M54.16 AND M54.17. 2. IMPLANTED SPINAL CATHETER INFUSION TRIAL HYDROMORPHONE SIDE-EFFECTS. OPERATION: 1. Removal of external dressing. 2. Removal of external infusion Hydromorphone with catheter connection to spinal catheter. 3. Placement of sterile 3 mL syringe aspirate clearing catheter of opioid and CSF mixture. 4. Diagnostic myelography with radiologic supervision interpretation. 5. Bolus Fentanyl 25 mcg through spinal catheter intraspinal. 6. Interface external catheter with new infusion Fentanyl and Bupivacaine set to deliver 96 mcg per day. 7. Sterile dressing applied securing external catheter, pump catheter, and all connections under sterile dressing. SURGEON: Dr. Yao Goddard. ANESTHESIA: None. ANESTHESIA PROVIDER: None. INDICATION: This patient presents with an ongoing implanted spinal catheter infusion trial with Hydromorphone for post lumbar laminectomy radiculopathy. Almost immediately, this patient had urinary retention. The infusion was stopped and he was kept in the hospital. Medication prescribed and then referred to his urologist. He saw his urologist within the last 3-5 days who suggested he continue to straight catheter, that no surgery would be done. He would straight catheterize himself until his normal urinary function returned. He also recommended discontinuation of the Dilaudid and continuing the infusion trial with the Fentanyl or alternate medication. He is here for medication change and diagnostics to confirm functionality of the system. PROCEDURE: No intravenous required. He was taken into the Operating Room. All of the dressings removed. The Hydromorphone infusion was then removed. The connection to the external catheter . Maintaining a sterile syringe was interfaced to the external catheter and 1 mL of catheter contents was aspirated from the spinal space clearing the implanted spinal catheter of CSF and opioid. Diagnostic myelography was performed; the resulting flow characteristics confirmed appropriate patency and functionality of the system. A bolus of Hydromorphone 0.025 or 25 mcg was given through the catheter. A new infusion set up with Fentanyl and Bupivacaine at 10 mcg per mL was then placed onto the field interfaced with appropriate catheter infusion and then the catheter infusion was interfaced to the implanted catheter by way of the external catheter. Sterile dressing was then applied securing all catheter components under sterile dressing. The external pump was then set to deliver Fentanyl and Bupivacaine at 96 mcg of Fentanyl today. He was then transported to the Recovery Room stable. No side-effects from the procedure or the sedation. Spinal bolus of Fentanyl 25 mcg given. DISCHARGE INSTRUCTIONS: 1. Sites to remain clean and dry. No showering in any way. 2. Standard medications resumed. He was given Flomax that will be represcribed. He will be given a prescription of Bapchule 7.5/325 to manage his postoperative pain until he is seen in one week. 3. Spinal opioid side-effects are; respiratory depression, nausea, vomiting, constipation, urinary retention, lightheadedness, or rash. If he has urinary retention and under the direction of his urologist, is straight catheterizing himself. He will continue under the direction of his urologist. He will be seen in the office in the next 2-3 days for increase of the infusion. All other instructions provided, numbers to contact, problems given. cc: Dr. Kelsey Acosta JOB NUMBER: [id number] MTDD
== END 2018-04-09 13:00 | disposition home or self-care (01) ==
LOC: SUR 09:01
PROVIDERS: ATTEND Pain Medicine Interventional Pain Medicine
DX: M96.1 Postlaminectomy syndrome, not elsewhere classified (principal); M54.16 Radiculopathy, lumbar region; M54.17 Radiculopathy, lumbosacral region; I10 Essential (primary) hypertension; N40.0 Benign prostatic hyperplasia without lower urinary tract symptoms
CPT/HCPCS: 62350; 62362; J3010; J0690; J7040

== ENCOUNTER 2019-04-22 06:11 | Day surgery (SDC) | payer MEDICARE ==
[2019-04-22] MEDS ORDERED: GLYCOPYRROLATE 0.2 MG/ML ML IV ONE (06:12)
[2019-04-22] MEDS ORDERED: FENTANYL PF 100MCG/2ML VIAL IV ONE (06:12)
[2019-04-22] MEDS ORDERED: PROPOFOL 10 MG/ML VIAL IV ONE (06:12)
[2019-04-22] MEDS ORDERED: MIDAZOLAM HCL 2MG/2ML VIAL IV ONE (06:12)
[2019-04-22] MEDS ORDERED: LIDOCAINE 2% MDV (20MG/ML) 20ML VIAL IV ONE (06:12)
[2019-04-22] MEDS ORDERED: RINGERS SOLUTION,LACTATED 1,000 ML IV ONE (06:58)
[2019-04-22] MEDS ORDERED: LIDOCAINE 1% W/EPI 1:100,000 MDV 20 ML VIAL SQ ONE (08:09)
[2019-04-22] MEDS ORDERED: BUPIVACAINE 0.5% W/EPI MPF 30 ML VIAL SQ ONE (08:09)
[2019-04-22] MEDS ORDERED: DEXAMETHASONE PRESERVATIVE FREE 10MG/ML VIAL SQ ONE (08:09)
--- NOTE | 2019-04-23 15:30 | Operative Note ---
DATE OF SURGERY: 04/22/2019 PREOPERATIVE DIAGNOSIS: Cervical spondylosis without myelopathy, ICD10 code M47.812. OPERATION: Radiofrequency rhizotomy of bilateral cervical facets C4-5, 5-6, and 6-7. INDICATIONS: This patient presents with primary neck pain. Examination showed tenderness of the cervical spine. Range of motion does cause pain to the neck with extension. Diagnostic studies show diffuse and multilevel spondylitic change. A previous facet series 75% pain control. Due to the failure of therapy and success of facet series, patient presents for rhizotomy for more long-term relief. PROCEDURE: Intravenous line, vital sign monitoring, IV sedation, prepped and draped in sterile technique. Cervical facets in the area of pain were identified and marked at C4-5, 5-6, 6-7. Each one of these points on the skin infiltrated. A 20-gauge rhizotomy cannula positioned. Stimulation trial was conducted. Rhizotomy burn performed. Local with antiinflammatory into the sites. The rhizotomy was 80 degrees, 90 seconds at each site bilaterally. All the areas cleaned. Topical antibiotic and sterile dressing applied. Will monitor and evaluate. [facility]
== END 2019-04-22 09:05 | disposition home or self-care (01) ==
LOC: SUR 06:11
PROVIDERS: ATTEND Pain Medicine Interventional Pain Medicine
DX: M47.812 Spondylosis without myelopathy or radiculopathy, cervical region (principal); Z79.01 Long term (current) use of anticoagulants; I10 Essential (primary) hypertension; N40.0 Benign prostatic hyperplasia without lower urinary tract symptoms; I25.10 Atherosclerotic heart disease of native coronary artery without angina pectoris; Z95.5 Presence of coronary angioplasty implant and graft
CPT/HCPCS: 64633; 64634 ×2; 01936; J1100; J3010; J7120